=== PATIENT | male | born 1960 | race Caucasian/White ===

== ENCOUNTER → 2017-11-07 | Outpatient (CLI) | payer BC ==
--- NOTE | 2017-11-07 09:27 | US ---
EXAMINATION TYPE: US kidneys/renal and bladder DATE OF EXAM: 11/07/2017 COMPARISON: NONE CLINICAL HISTORY: R31.0 gross hematuria. EXAM MEASUREMENTS: Right Kidney: 10.2 x 4.8 x 5.3 cm Left Kidney: 10.8 x 4.3 x 4.3 cm Right Kidney: No hydronephrosis or masses seen Left Kidney: No hydronephrosis or masses seen . Focal cortical scar is seen of the left kidney. Bladder: 1.3 x 1.5 x 2.3 cm hyperechoic area visualized mid bladder with internal vascularity visuali zed Bilateral Jets seen: Right jet visualized. Left jet not visualized after 2 minutes of scanning There is no evidence for hydronephrosis at this point in time. No nephrolithiasis is seen. IMPRESSION: 2.3 cm mass of the posterior wall of the urinary bladder appearing near the left ureteral orifice wit hout resultant left-sided hydronephrosis. This mass is internal vascularity and is highly suspicious for neoplasm. Direct visualization and tissue sampling are recommended. A Yellow level critical message alert has been initiated for Anshul Carrillo MD via the [employer] Critical Results System on 11/07/2017 9:25 AM. This message alert has been sent to Yasmine Madrigal via the preferences provided by the clinician for the receipt of Radiology Critical Findings. Valentina Royal [employer] ID [id number].
== END | disposition home or self-care (01) ==
LOC: RADUSWWP 08:06
PROVIDERS: ATTEND Urology
DX: R31.0 Gross hematuria (principal)
CPT/HCPCS: 76770

== ENCOUNTER → 2018-05-01 | Outpatient (CLI) | payer BC ==
--- NOTE | 2018-05-01 18:25 | US ---
EXAMINATION TYPE: US venous doppler duplex LE LT DATE OF EXAM: 05/01/2018 6:16 PM COMPARISON: NONE CLINICAL HISTORY: left leg swelling I89.0. left ankle swelling. No blood thinners or hx of blood cruz ts. No redness. SIDE PERFORMED: Left TECHNIQUE: The lower extremity deep venous system is examined utilizing real time linear array sonog jacky with graded compression, doppler sonography and color-flow sonography. VESSELS IMAGED: External Iliac Vein (EIV) Common Femoral Vein Deep Femoral Vein Greater Saphenous Vein * Femoral Vein Popliteal Vein Small Saphenous Vein * Proximal Calf Veins (* superficial vessels) Left Leg: Negative for DVT IMPRESSION: Negative exam. No evidence of deep venous thrombosis in the left leg.
== END ==
LOC: RADUSMAIN 17:36
PROVIDERS: ATTEND Electrodiagnostic Medicine
DX: I89.0 Lymphedema, not elsewhere classified (principal); S24.102S Unspecified injury at T2-T6 level of thoracic spinal cord, sequela

== ENCOUNTER → 2018-05-21 | Outpatient (CLI) | payer BC | END | disposition home or self-care (01) | LOC: RADMRIMAIN 10:37 | PROVIDERS: ATTEND Electrodiagnostic Medicine | DX: Z53.9 Procedure and treatment not carried out, unspecified reason (principal) ==

== ENCOUNTER 2021-12-03 12:02 | Emergency (ER) | payer BC ==
[2021-12-03 12:09] VITALS: RESP 18
[2021-12-03] MEDS ORDERED: SODIUM CHLORIDE 0.9% 1,000 ML IV STA (12:24)
[2021-12-03] MEDS ORDERED: ACETAMINOPHEN TAB 500 MG TAB PO STA (12:24)
[2021-12-03 12:54] LABS: Basophils % (A) 0 %; Eosinophils % (A) 1 %; HCT 40.5 % (39.0-53.0); HGB 14.4 gm/dL (13.0-17.5); Hyperchromasia Slight; Lymphocytes # (A) 0.9 k/uL (1.0-4.8); Lymphocytes % (A) 12 %; MCH 30.5 pg (25.0-35.0); MCHC 35.5 g/dL (31.0-37.0); MCV 85.8 fL (80.0-100.0); Mean Platelet Volume 9.1; Monocytes # (A) 0.5 k/uL (0-1.0); Monocytes % (A) 7 %; Neutrophils # (A) 5.7 k/uL (1.3-7.7); Neutrophils % (A) 78 %; Platelet Count 142 k/uL (150-450); RBC 4.71 m/uL (4.30-5.90); WBC 7.4 k/uL (3.8-10.6)
--- NOTE | 2021-12-03 12:57 | ED ---
General Adult HPI - General Chief complaint: Recheck/Abnormal Lab/Rx Stated complaint: poss UTI, dehydration Time Seen by Provider: 12/03/21 12:13 Source: patient Mode of arrival: ambulatory Limitations: no limitations - History of Present Illness Initial comments: This 61-year-old male with past medical history of recurrent UTIs and hypertension presents to the emergency department with UTI x3 days. Patient states he presented to his primary care provider, Dr. Gonzales on as he was experiencing blood in his urine along with increased urinary urgency and hesitancy since Sunday. He states his urine did result in urinary tract infection and states he was placed on levofloxacin on which has been taking as directed, however last night he began to experience diarrhea, fever and sweats. Patient states he has also had a decreased appetite over the last couple of days. Patient states since this morning he is also experiencing gen eralized body aches and is feeling worse and more tired. Patient denies any chest pain, shortness of breath, abdominal pain, flank/back pain, cough, sore throat, nasal congestion, headache, lightheadedness, dizziness, weakness, change in vision. - Related Data Home Medications Medication Instructions Recorded Confirmed Levofloxacin [Levaquin] 500 mg PO DAILY@1700 12/03/21 12/03/21 Lisinopril [Prinivil] 10 mg PO DAILY 12/03/21 12/03/21 Allergies Allergy/AdvReac Type Severity Reaction Status Date / Time baclofen Allergy Rash/Hives Verified 12/03/21 14:45 Review of Systems ROS Statement: Those systems with pertinent positive or pertinent negative responses have been documented in the HPI. ROS Other: All systems not noted in ROS Statement are negative. Past Medical History Past Medical History: Hypertension Additional Past Medical History / Comment(s): Parapylagia History of Any Multi-Drug Resistant Organisms: None Reported Past Surgical History: No Surgical Hx Reported Past Psychological History: No Psychological Hx Reported Smoking Status: Never smoker Past Alcohol Use History: None Reported Past Drug Use History: None Reported General Exam Limitations: no limitations General appearance: alert, in no apparent distress Head exam: Present: atraumatic, normocephalic, normal inspection Eye exam: Present: normal appearance, PERRL, EOMI. Absent: scleral icterus, conjunctival injection, periorbital swelling ENT exam: Present: normal exam, mucous membranes moist Neck exam: Present: normal inspection. Absent: tenderness, meningismus, lymphadenopathy Respiratory exam: Present: normal lung sounds bilaterally. Absent: respiratory distress, wheezes, rales, rhonchi, stridor Cardiovascular Exam: Present: regular rate, normal rhythm, normal heart sounds. Absent: systolic murmur, diastolic murmur, rubs, gallop, clicks GI/Abdominal exam: Present: soft, normal bowel sounds. Absent: distended, tenderness, guarding, rebound, rigid Extremities exam: Present: normal inspection (Patient is wearing a brace on right lower extremity), normal capillary refill. Absent: full ROM (Patient is paraplegic since 2000; does use wheelchair at home), tenderness, pedal edema, joint swelling, calf tenderness Back exam: Present: normal inspection, full ROM. Absent: CVA tenderness (R), CVA tenderness (L), paraspinal tenderness, vertebral tenderness Neurological exam: Present: alert, oriented X3, CN II-XII intact Psychiatric exam: Present: normal affect, normal mood Skin exam: Present: warm, dry, intact, normal color. Absent: rash Course Vital Signs 12/03/21 12:04 Temperature 99.8 F H Pulse Rate 106 H Respiratory 18 Rate Blood Pressure 178/96 O2 Sat by Pulse 99 Oximetry Medical Decision Making - Medical Decision Making This 61-year-old male presents emergency Department with urinary tract infection as diagnosed on along with fever and body aches that began 2 days ago. Blood without any leukocytosis, potassium 3.1-oral potassium given. Urine with trace blood, small leukocyte esterase and 9 white blood cells. Tylenol patient for fever and body aches. After receiving Tylenol and fluids, patient did request to be discharged and stated he did feel much better. Patient and stated they would call Dr. Gonzales on Sunday to review today's ER visit. I did test patient for influenza A/B and COVID-19 which were all negative. Patient did request to be discharged and stated he did feel better. I did instruct patient to continue taking his levofloxacin that was prescribed for his UTI. I instructed him to follow up with his primary care provider early next week. Strict return precautions were discussed. Patient verbally agreed to plan. Patient sent home in stable condition. Case discussed in detail with my attending, Dr. Gonzalez - Lab Data Result diagrams: 12/03/21 12:41 12/03/21 12:41 Lab Results 12/03/21 12/03/21 12/03/21 Range/Units 12:41 12:41 12:41 WBC 7.4 (3.8-10.6) k/uL RBC 4.71 (4.30-5.90) m/uL Hgb 14.4 (13.0-17.5) gm/dL Hct 40.5 (39.0-53.0) % MCV 85.8 (80.0-100.0) fL MCH 30.5 (25.0-35.0) pg MCHC 35.5 (31.0-37.0) g/dL RDW 14.0 (11.5-15.5) % Plt Count 142 L (150-450) k/uL MPV 9.1 Neutrophils % 78 % Lymphocytes % 12 % Monocytes % 7 % Eosinophils % 1 % Basophils % 0 % Neutrophils # 5.7 (1.3-7.7) k/uL Lymphocytes # 0.9 L (1.0-4.8) k/uL Monocytes # 0.5 (0-1.0) k/uL Eosinophils # 0.0 (0-0.7) k/uL Basophils # 0.0 (0-0.2) k/uL Hyperchromasia Slight Sodium 135 L (137-145) mmol/L Potassium 3.1 L (3.5-5.1) mmol/L Chloride 97 L (98-107) mmol/L Carbon Dioxide 28 (22-30) mmol/L Anion Gap 10 mmol/L BUN 20 (9-20) mg/dL Creatinine 0.85 (0.66-1.25) mg/dL Est GFR (CKD-EPI)AfAm >90 (>60 ml/min/1.73 sqM) Est GFR (CKD-EPI)NonAf >90 (>60 ml/min/1.73 sqM) Glucose 106 H (74-99) mg/dL Plasma Lactic Acid Gibran 1.3 (0.7-2.0) mmol/L Calcium 8.1 L (8.4-10.2) mg/dL Total Bilirubin 1.3 (0.2-1.3) mg/dL AST 20 (17-59) U/L ALT 16 (4-49) U/L Alkaline Phosphatase 77 (38-126) U/L Total Protein 6.9 (6.3-8.2) g/dL Albumin 3.5 (3.5-5.0) g/dL Urine Color Urine Appearance (Clear) Urine pH (5.0-8.0) Ur Specific [place] (1.001-1.035) Urine Protein (Negative) Urine Glucose (UA) (Negative) Urine Ketones (Negative) Urine Blood (Negative) Urine Nitrite (Negative) Urine Bilirubin (Negative) Urine Urobilinogen (<2.0) mg/dL Ur Leukocyte Esterase (Negative) Urine RBC (0-5) /hpf Urine WBC (0-5) /hpf Urine Mucus (None) /hpf Coronavirus (PCR) (Not Detectd) Influenza Type A RNA (Not Detectd) Influenza Type B (PCR) (Not Detectd) 12/03/21 12/03/21 12/03/21 Range/Units 12:41 15:32 15:32 WBC (3.8-10.6) k/uL RBC (4.30-5.90) m/uL Hgb (13.0-17.5) gm/dL Hct (39.0-53.0) % MCV (80.0-100.0) fL MCH (25.0-35.0) pg MCHC (31.0-37.0) g/dL RDW (11.5-15.5) % Plt Count (150-450) k/uL MPV Neutrophils % % Lymphocytes % % Monocytes % % Eosinophils % % Basophils % % Neutrophils # (1.3-7.7) k/uL Lymphocytes # (1.0-4.8) k/uL Monocytes # (0-1.0) k/uL Eosinophils # (0-0.7) k/uL Basophils # (0-0.2) k/uL Hyperchromasia Sodium (137-145) mmol/L Potassium (3.5-5.1) mmol/L Chloride (98-107) mmol/L Carbon Dioxide (22-30) mmol/L Anion Gap mmol/L BUN (9-20) mg/dL Creatinine (0.66-1.25) mg/dL Est GFR (CKD-EPI)AfAm (>60 ml/min/1.73 sqM) Est GFR (CKD-EPI)NonAf (>60 ml/min/1.73 sqM) Glucose (74-99) mg/dL Plasma Lactic Acid Gibran (0.7-2.0) mmol/L Calcium (8.4-10.2) mg/dL Total Bilirubin (0.2-1.3) mg/dL AST (17-59) U/L ALT (4-49) U/L Alkaline Phosphatase (38-126) U/L Total Protein (6.3-8.2) g/dL Albumin (3.5-5.0) g/dL Urine Color Yellow Urine Appearance Clear (Clear) Urine pH 6.0 (5.0-8.0) Ur Specific [place] 1.008 (1.001-1.035) Urine Protein Trace H (Negative) Urine Glucose (UA) Negative (Negative) Urine Ketones Negative (Negative) Urine Blood Trace H (Negative) Urine Nitrite Negative (Negative) Urine Bilirubin Negative (Negative) Urine Urobilinogen <2.0 (<2.0) mg/dL Ur Leukocyte Esterase Small H (Negative) Urine RBC 1 (0-5) /hpf Urine WBC 9 H (0-5) /hpf Urine Mucus Rare H (None) /hpf Coronavirus (PCR) Not Detected (Not Detectd) Influenza Type A RNA Not Detected (Not Detectd) Influenza Type B (PCR) Not Detected (Not Detectd) Disposition Clinical Impression: Urinary tract infection Disposition: HOME SELF-CARE Condition: Stable Instructions (If sedation given, give patient instructions): Urinary Tract Infection in Men (ED) Additional Instructions: Please continue your levofloxacin antibiotic. Follow-up with your primary care provider early next week. Return to the emergency department with any new, worsening, or concerning symptoms. Is patient prescribed a controlled substance at d/c from ED?: No Referrals: Pawel Gonzales MD [Primary Care Provider] - 1-2 days Time of Disposition: 15:41
[2021-12-03 13:14] LABS: ALT 16 U/L (4-49); AST 20 U/L (17-59); African American GFR (CKD) >90 (>60 ml/min/1.73 sqM); Albumin 3.5 g/dL (3.5-5.0); Alkaline Phosphatase 77 U/L (38-126); Anion Gap 10 mmol/L; Blood Urea Nitrogen 20 mg/dL (9-20); Calcium 8.1 mg/dL (8.4-10.2); Carbon Dioxide 28 mmol/L (22-30); Chloride 97 mmol/L (98-107); Glucose 106 mg/dL (74-99); Non-African American GFR(CKD) >90 (>60 ml/min/1.73 sqM); Potassium 3.1 mmol/L (3.5-5.1); Sodium 135 mmol/L (137-145); Total Bilirubin 1.3 mg/dL (0.2-1.3); Total Protein 6.9 g/dL (6.3-8.2)
[2021-12-03] MEDS ORDERED: Potassium Replacement Protocol 1 EACH MISC MISCELLANE PRN (13:18)
[2021-12-03] MEDS ORDERED: POTASSIUM BICARBONATE/CIT AC 20 MEQ TABLET.EFF PO ONE (13:35)
[2021-12-03] MEDS ORDERED: POTASSIUM CHLORIDE 10 MEQ in WATER FOR INJECTION 1 100ML.BAG IVPB SCH (14:00)
[2021-12-03 15:01] LABS: Appearance,Urine Clear (Clear); Bilirubin,Urine Negative (Negative); Blood,Urine Trace (Negative); Color,Urine Yellow; Glucose,Urine (UA) Negative (Negative); Ketones,Urine Negative (Negative); Leukocyte Esterase,Urine Small (Negative); Mucus,Urine Rare /hpf; Nitrite,Urine Negative (Negative); Protein,Urine Trace (Negative); RBC,Urine 1 /hpf (0-5); Specific Gravity,Urine 1.008 (1.001-1.035); Urobilinogen,Urine <2.0 mg/dL (<2.0); WBC,Urine 9 /hpf (0-5)
[2021-12-03 16:11] VITALS: BP 133/78; PULSE 97; TEMP 98.7
== END 2021-12-03 16:09 | disposition home or self-care (01) ==
LOC: EC 12:02
DX: N39.0 Urinary tract infection, site not specified (principal); I10 Essential (primary) hypertension; Z79.899 Other long term (current) drug therapy; Z88.6 Allergy status to analgesic agent; Z20.822 Contact with and (suspected) exposure to COVID-19
CPT/HCPCS: 36415; 80053; 81001; 83605; 85025; 87040; 87502; 87635; 96360; 99283

== ENCOUNTER 2022-01-25 08:26 | Day surgery (SDC) | payer BC ==
[~2022-01-25 08:26] MED LIST: LACTATED RINGERS 1,000 ML IV SCH; LIDOCAINE 1% (10MG/ML) FOR IV START INTRADERMA PRN
[2022-01-25 09:09] VITALS: RESP 16; TEMP 97.1
[2022-01-25] MEDS ORDERED: LIDOCAINE 1% (10MG/ML) FOR IV START SQ ONE (09:11)
--- NOTE | 2022-01-25 09:44 | P.GSHP ---
History of Present Illness H&P Date: 01/25/22 CHIEF COMPLAINT: Colon screen HISTORY OF PRESENT ILLNESS: The patient is a 61-year-old male who presents for colon screen. Lower endoscopy was offered for further evaluation and management. PAST MEDICAL HISTORY: Please see list. PAST SURGICAL HISTORY: Please see list. MEDICATIONS: Please see list. ALLERGIES: Please see list. SOCIAL HISTORY: No illicit drug use FAMILY HISTORY: No reports of Crohn disease or ulcerative colitis. REVIEW OF ORGAN SYSTEMS: CONSTITUTIONAL: No reports of fevers or chills. PHYSICAL EXAM: VITAL SIGNS: Stable GENERAL: Well-developed pleasant in no acute distress. HEENT: No scleral icterus. Extraocular movements grossly intact. Moist buccal mucosa. NECK: Supple without lymphadenopathy. CHEST: Unlabored respirations. Equal bilateral excursions. CARDIOVASCULAR: Regular rate and rhythm. Distal 2+ pulses. ABDOMEN: Soft, nontender, nondistended. MUSCULOSKELETAL: No clubbing, cyanosis, or edema. ASSESSMENT: 1. Colon screen. PLAN: 1. 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 HAS CHRONIC PAIN IN RIB CAGE. History of Any Multi-Drug Resistant Organisms: None Reported Past Surgical History: Back Surgery Additional Past Surgical History / Comment(s): BACK SURGERY 2000 @ [facility]. Past Anesthesia/Blood Transfusion Reactions: No Reported Reaction Past Psychological History: No Psychological Hx Reported Smoking Status: Never smoker Past Alcohol Use History: None Reported Past Drug Use History: None Reported Medications and Allergies Home Medications Medication Instructions Recorded Confirmed Type Lisinopril [Prinivil] 10 mg PO QAM 12/03/21 01/25/22 History HYDROcodone/IBUPROFEN 1 tab PO Q6H PRN 01/23/22 01/25/22 History [HYDROcodone/IBUPROFEN 7.5-200] Allergies Allergy/AdvReac Type Severity Reaction Status Date / Time baclofen Allergy Rash/Hives Verified 01/25/22 08:58 Surgical - Exam Vital Signs Temp Pulse Resp BP Pulse Ox 97.1 F L 101 H 16 207/100 100 01/25/22 09:07 01/25/22 09:07 01/25/22 09:07 01/25/22 09:07 01/25/22 09:07
[2022-01-25] MEDS ORDERED: PROPOFOL 10 MG/ML 20 ML VIAL IV ONE (09:50)
--- NOTE | 2022-01-25 10:23 | P.PCN ---
Date of Procedure: 01/25/22 Description of Procedure: PREOPERATIVE DIAGNOSIS: Colonoscopy screening. Personal history colon polyps POSTOPERATIVE DIAGNOSIS: Colonoscopy screening. Personal history colon polyps External hemorrhoids, grade 3 OPERATION: Colonoscopy to the cecum, ileocecal valve and appendiceal orifice. SURGEON: Michaela Mendoza MD. ANESTHESIA: MAC. INDICATIONS: The patient is a 61-year-old male who presents for colonoscopy screening. Last colonoscopy 5 years ago. Benefits and risks were described and informed consent was obtained. DESCRIPTION OF PROCEDURE: The patient had undergone Sutab prep. The patient had been brought into the operating room and laid in the left lateral decubitus position. After adequate intravenous sedation, the rectum was examined with 2% lidocaine jelly. External hemorrhoids were encountered. The prostate was unremarkable. The rectal tone was within normal limits. No lesions were palpated in the rectal vault. An Olympus colonoscope was advanced until the cecum, ileocecal valve and appendiceal orifice were clearly viewed. The prep was good. No scattered diverticulosis was encountered. No colonic polyps were found. No evidence of focal colitis was found. Retroflexion of the scope demonstrated grade 3 internal hemorrhoids without active bleeding or inflammation. The colon was desufflated. The patient had tolerated the procedure well. Withdrawal time was over 6 minutes. FINDINGS: Aronchick preparation quality scale 2 (1-5) Internal hemorrhoids, grade 3 External prolapsed hemorrhoids, grade 3 No diverticulosis No arteriovenous malformations. No adenomatous polyps. No focal colitis. RECOMMENDATIONS: Lower endoscopy in 2026 Plan - Discharge Summary Discharge Rx Participant: No New Discharge Prescriptions: Continue Lisinopril [Prinivil] 10 mg PO QAM HYDROcodone/IBUPROFEN [HYDROcodone/IBUPROFEN 7.5-200] 1 tab PO Q6H PRN PRN Reason: Pain Discharge Medication List Lisinopril [Prinivil] 10 mg PO QAM 12/03/21 [History] HYDROcodone/IBUPROFEN [HYDROcodone/IBUPROFEN 7.5-200] 1 tab PO Q6H PRN 01/23/22 [History] Follow up Appointment(s)/Referral(s): Michaela Mendoza MD [STAFF PHYSICIAN] - As Needed Patient Instructions/Handouts: *Surgery [facility] - (Anesthesia) Endoscopy Discharge Instructions, Colonoscopy (GEN) Activity/Diet/Wound Care/Special Instructions: Repeat colonoscopy in 5 years2026 Discharge Disposition: HOME SELF-CARE
[2022-01-25 11:02] VITALS: BP 174/82; PULSE 81
== END 2022-01-25 11:16 | disposition home or self-care (01) ==
LOC: ORWHC2ENDO 08:26
PROVIDERS: ATTEND Surgery Plastic and Reconstructive Surgery
DX: Z12.11 Encounter for screening for malignant neoplasm of colon (principal); K64.2 Third degree hemorrhoids; K64.4 Residual hemorrhoidal skin tags; Z86.010 Personal history of colon polyps; I10 Essential (primary) hypertension; G82.20 Paraplegia, unspecified; G89.29 Other chronic pain; R07.81 Pleurodynia; Z79.899 Other long term (current) drug therapy; Z88.8 Allergy status to other drugs, medicaments and biological substances; Z98.890 Other specified postprocedural states
CPT/HCPCS: J2704; G0121

== ENCOUNTER 2022-04-17 10:13 | Emergency (ER) | payer BC, OTHER ==
[2022-04-17 10:27] VITALS: TEMP 98.3
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
[2022-04-17 11:28] LABS: HCT 44.7 % (39.0-53.0); HGB 15.8 gm/dL (13.0-17.5); MCH 30.6 pg (25.0-35.0); MCHC 35.4 g/dL (31.0-37.0); MCV 86.4 fL (80.0-100.0); Mean Platelet Volume 8.3; Platelet Count 174 k/uL (150-450); RBC 5.17 m/uL (4.30-5.90); RDW 13.6 % (11.5-15.5); WBC 8.2 k/uL (3.8-10.6)
[2022-04-17 11:33] LABS: African American GFR (CKD) >90 (>60 ml/min/1.73 sqM); Anion Gap 13 mmol/L; Blood Urea Nitrogen 11 mg/dL (9-20); Carbon Dioxide 26 mmol/L (22-30); Chloride 102 mmol/L (98-107); Glucose 97 mg/dL (74-99); Non-African American GFR(CKD) 87 (>60 ml/min/1.73 sqM); Sodium 141 mmol/L (137-145)
[2022-04-17 11:36] VITALS: RESP 18
[2022-04-17] MEDS ORDERED: hydrALAZINE HCL 20 MG/ML 1 ML VIAL IVP STA (11:39)
--- NOTE | 2022-04-17 11:52 | XR ---
EXAMINATION TYPE: XR shoulder complete LT DATE OF EXAM: 04/17/2022 CLINICAL HISTORY: pain COMPARISON: NONE TECHNIQUE: Three views of the left shoulder are obtained. FINDINGS: There is no acute fracture/dislocation evident. The acromioclavicular and glenohumeral laura int spaces appear moderately narrowed. The visualized ribs are intact and unremarkable. IMPRESSION: 1. There is no acute fracture or dislocation. ICD 10 NO FRACTURE, INITIAL EVALUATION
[2022-04-17 13:12] VITALS: BP 176/96; PULSE 82
== END 2022-04-17 13:10 | disposition home or self-care (01) ==
LOC: EC 10:13
DX: M25.512 Pain in left shoulder (principal); I10 Essential (primary) hypertension; Z88.6 Allergy status to analgesic agent; Z79.899 Other long term (current) drug therapy; V89.2XXA Person injured in unspecified motor-vehicle accident, traffic, initial encounter; Y92.89 Other specified places as the place of occurrence of the external cause
CPT/HCPCS: 36415; 80048; 85027; 73030; 99284; 96374; J0360